=== PATIENT | female | born 1980 | race African-American/Black ===

== ENCOUNTER → 2018-10-14 | Outpatient (CLI) | payer OTHER ==
--- NOTE | 2018-10-14 11:50 | KCIC ---
EXAM: Pelvic sonogram. HISTORY: Foreign body in vulva. TECHNIQUE: Transabdominal and transvaginal sonographic imaging of the pelvis was performed. COMPARISON: None. FINDINGS: The uterus is surgically absent. The ovaries are normal in size and demonstrate normal blood flow. There is no pelvic free fluid. There are multiple ovarian follicles with a dominant right ovarian follicle measuring 1.6 cm. No foreign body is seen. There are prominent bowel loops within the pelvis. IMPRESSION: 1. Surgically absent uterus. 2. Physiologic ovarian follicles with a dominant right ovarian follicle measuring 1.6 cm. 3. Prominent bowel loops within the pelvis. No foreign body is seen sonographically. Electronically signed by: Susie Dean MD (10/14/2018 11:47 AM) [id number]
== END | disposition home or self-care (01) ==
LOC: KCIC US 10:29
PROVIDERS: ATTEND Family Medicine
DX: T19.2XXA Foreign body in vulva and vagina, initial encounter (principal); Z90.710 Acquired absence of both cervix and uterus; X58.XXXA Exposure to other specified factors, initial encounter; Y93.89 Activity, other specified; Y92.89 Other specified places as the place of occurrence of the external cause; Y99.8 Other external cause status
CPT/HCPCS: 76830; 76856